=== PATIENT | male | born 1970 | race Native Hawaiian/Other Pacific Islander ===

== ENCOUNTER 2016-11-20 06:37 | Inpatient (IN) | payer OTHER ==
[~2016-11-20] VITALS: Ht 180.3 cm; Wt 98.0 kg
[2016-11-20] VITALS (25 sets, daily range): BP systolic 149–214; BP diastolic 90–121; PULSE 57–99; RESP 15–23; TEMP 98–98.8; O2SAT 96–100
[~2016-11-20 06:37] MED LIST: HYDR-3533 PO; JANU50TA9 PO; KETO10 PO; ZOFR4TAB3 SL
[2016-11-20] MEDS ORDERED: OMEP10CA PO (06:45)
[2016-11-20] MEDS ORDERED: JANU50TA8 PO (06:45)
[2016-11-20] MEDS ORDERED: ASPIRIN 325 MG TAB PO ONE (07:15)
[2016-11-20] MEDS ORDERED: SODIUM CHLORIDE 0.9% FLUSH 10 ML FLUSH IVF PRN (07:15)
--- NOTE | 2016-11-20 07:16 | PD ---
HPI Chief Complaint: Chest Pain Time Seen by Provider: 06:54 Travel History International Travel<30 days: No (unknown) Contact w/Intl Traveler<30days: No (unknown) History of Present Illness HPI 46yo M with PMH of GERD, HTN and NIDDM presents to the ED with c/o intermittent chest pain for 2 days. Pain is midsternal, burning and lasts few minutes at a time. Last episode of chest pain was last night. Denies any associated sob, nausea, diaphoresis, vomiting. Pain occasionally radiates in bilateral upper back. Denies fever, abdominal pain, focal weakness or numbness. Pt has not been compliant with his blood pressure medication for at least 1 month and has not seen his PMD in a while. He does not know his HTN medication. +Cig smoker. Denies any previous similar chest pain or stress test. Pt took his omeprazole. PFSH Past Medical History Cardiovascular Problems: Yes (HTN) Diabetes: Yes Patient Takes Glucophage: No Diminished Hearing: No Hypertension: Yes Kidney Stones: Yes Musculoskeletal: Yes (BACK PAIN) Tetanus Vaccination: Unknown Influenza Vaccination: No Social History Alcohol Use: Yes (rarely) Tobacco Use: Yes (OCC.) Substance Use: No Allergies-Medications (Allergen,Severity, Reaction): Coded Allergies: No Known Allergies (Verified , 11/20/16) Reported Meds & Prescriptions Reported Meds & Active Scripts Active Reported Omeprazole 10 Mg Cap 10 Mg PO DAILY Janumet (Sitagliptin-Metformin) 50-1,000 Mg Tab 1 Tab PO BID Review of Systems Except as stated in HPI: all other systems reviewed are Neg Physical Exam Narrative GENERAL: 46yo M not in acute distress. SKIN: Focused skin assessment warm/dry. HEAD: Atraumatic. Normocephalic. EYES: Pupils equal and round. No scleral icterus. No injection or drainage. ENT: No nasal bleeding or discharge. Mucous membranes pink and moist. NECK: Trachea midline. No JVD. CARDIOVASCULAR: Regular rate and rhythm. No murmur appreciated. RESPIRATORY: No accessory muscle use. Clear to auscultation. Breath sounds equal bilaterally. GASTROINTESTINAL: Abdomen soft, non-tender, nondistended. No rebound tenderness or guarding. MUSCULOSKELETAL: No obvious deformities. No clubbing. No cyanosis. No edema. NEUROLOGICAL: Awake and alert. No obvious cranial nerve deficits. Motor grossly within normal limits. Normal speech. PSYCHIATRIC: Appropriate mood and affect; insight and judgment normal. Data Data Last Documented VS Vital Signs Date Time Temp Pulse Resp B/P Pulse Ox O2 Delivery O2 Flow Rate FiO2 11/20/16 08:00 62 22 200/102 97 11/20/16 07:01 Room Air 11/20/16 06:45 98.3 Orders Basic Metabolic Panel (Bmp) (11/20/16 07:05) Ckmb (Isoenzyme) Profile (11/20/16 07:05) Complete Blood Count With Diff (11/20/16 07:05) Prothrombin Time / Inr (Pt) (11/20/16 07:05) Act Partial Throm Time (Ptt) (11/20/16 07:05) Troponin I (11/20/16 07:05) Chest, Single Ap (11/20/16 07:05) Ecg Monitoring (11/20/16 07:05) Bilateral Bp Monitoring (11/20/16 07:05) Iv Access Insert/Monitor (11/20/16 07:05) Oximetry (11/20/16 07:05) Aspirin (Aspirin) (11/20/16 07:15) Sodium Chloride 0.9% Flush (Ns Flush) (11/20/16 07:15) Electrocardiogram (11/20/16 06:46) CKMB (11/20/16 07:10) CKMB% (11/20/16 07:10) Metoprolol Tartrate Inj (Lopressor Inj) (11/20/16 08:15) Nitroglycerin Sl (Nitrostat Sl) (11/20/16 08:15) Consult Cardiology (11/20/16 ) Vector Control Assistant / Telemetry CRISTINO.Q8H (11/20/16 08:13) Heparin Inj (Heparin Inj) (11/20/16 08:15) Heparin Inj (Heparin Inj) (11/20/16 14:15) Heparin Inj (Heparin Inj) (11/20/16 14:15) Heparin-D5w Inj (Heparin-D5w Inj) (11/20/16 08:15) Act Partial Throm Time (Ptt) (11/20/16 08:13) Prothrombin Time / Inr (Pt) (11/20/16 08:13) Electrocardiogram (11/20/16 ) Admit Order (Ed Use Only) (11/20/16 08:33) Labs Laboratory Tests Test 11/20/16 07:10 White Blood Count 11.3 TH/MM3 Red Blood Count 5.29 MIL/MM3 Hemoglobin 15.1 GM/DL Hematocrit 44.2 % Mean Corpuscular Volume 83.5 FL Mean Corpuscular Hemoglobin 28.5 PG Mean Corpuscular Hemoglobin 34.2 % Concent Red Cell Distribution Width 13.8 % Platelet Count 251 TH/MM3 Mean Platelet Volume 9.5 FL Neutrophils (%) (Auto) 60.8 % Lymphocytes (%) (Auto) 27.5 % Monocytes (%) (Auto) 7.9 % Eosinophils (%) (Auto) 3.3 % Basophils (%) (Auto) 0.5 % Neutrophils # (Auto) 6.9 TH/MM3 Lymphocytes # (Auto) 3.1 TH/MM3 Monocytes # (Auto) 0.9 TH/MM3 Eosinophils # (Auto) 0.4 TH/MM3 Basophils # (Auto) 0.1 TH/MM3 CBC Comment DIFF FINAL Differential Comment Prothrombin Time 10.9 SEC Prothromb Time International 1.0 RATIO Ratio Activated Partial 28.9 SEC Thromboplast Time Sodium Level 135 MEQ/L Potassium Level 3.6 MEQ/L Chloride Level 100 MEQ/L Carbon Dioxide Level 27.0 MEQ/L Anion Gap 8 MEQ/L Blood Urea Nitrogen 13 MG/DL Creatinine 1.09 MG/DL Estimat Glomerular Filtration 73 ML/MIN Rate Random Glucose 174 MG/DL Calcium Level 8.9 MG/DL Total Creatine Kinase 378 U/L Creatine Kinase MB 7.7 NG/ML Creatine Kinase MB % 2.0 % Troponin I 1.35 NG/ML [facility] Medical Decision Making Medical Screen Exam Complete: Yes Emergency Medical Condition: Yes Interpretation(s) EKG: NSR 80bpm. ST segment elevation in V1-V3. However, ST elevation in V2-V3 is similar to 10/02/2009 EKG. TWI I, aVL, V6. LVH. Normal axis. Differential Diagnosis ACS vs. GERD vs. hypertensive emergency Narrative Course 46yo M with atypical presents chest pain. However, he does have LVH, ST elevation in anterior leads that are similar to his previous EKG in 2009. Pt currently does not have any chest pain and blood pressure is markedly elevated. Will check labs including cardiac enzymes. Labs reviewed, mild leukocytosis at 11.3. Troponin is elevated at 1.35. Cardiology Dr. Osorio called. CXR showed mild left LVH. Pt reevaluated at bedside and still denies any chest pain or sob currently. Discussed with Dr. Osorio who recommended to keep pt NPO, start heparin, give beta malinda and he will see him today. Repeat EKG showed persistent ST elevation V2, V3. TWI I, aVL, V6. Essentially unchanged from prior EKG. Pt still has no chest pain. Heparin bolus and drip ordered. Pt given lopressor 5mg IV. Discussed with Dr. Hernandez and accepted to his service for NSTEMI. Critical Care Narrative Aggregate critical care time was 50 minutes. Time to perform other separately billable procedures was not included in the critical care time. My time did not include minutes spent treating any other patients simultaneously or on activities that did not directly contribute to the patient's treatment. The services I provided to this patient were to treat and/or prevent clinically significant deterioration that could result in: cardiovascular collapse or . I provided critical care services requiring my management, as noted below: Chart data review, documentation time, medication orders and management, vital sign assessments/reviewing monitor data, ordering and reviewing lab tests, ordering and interpreting/reviewing x-rays and diagnostic studies, care of the patient and discussion of the patient with the admitting physicians. HemaPrompt Point of Care Internal Pos. & Neg. Controls: Passed Fecal Specimen Occult Blood: Negative Diagnosis Primary Impression: NSTEMI (non-ST elevated myocardial infarction) Admitting Information Admitting Physician Requests: Yoli Carrillo DO Nov 20, 2016 07:16 Admitting Information Admitting Physician Requests: Yoli Carrillo DO Nov 20, 2016 07:16
[2016-11-20 07:27] LABS: AUTOMATED NEUTROPHIL # 6.9 TH/MM3 (1.8-7.7); BASOPHIL # 0.1 TH/MM3 (0-0.2); BASOPHIL % 0.5 % (0.0-2.0); EOSINOPHIL # 0.4 TH/MM3 (0-0.4); EOSINOPHIL % 3.3 % (0.0-4.0); HEMATOCRIT 44.2 % (39.0-51.0); HEMO FLAGS DIFF FINAL; LYMPH % 27.5 % (9.0-44.0); LYMPHOCYTE # 3.1 TH/MM3 (1.0-4.8); MEAN CELL VOLUME 83.5 FL (80.0-100.0); MEAN CORPUSCULAR HEMOGLOBIN 28.5 PG (27.0-34.0); MEAN CORPUSCULAR HGB CONC 34.2 % (32.0-36.0); MONO % 7.9 % (0.0-8.0); NEUT % 60.8 % (16.0-70.0); PLATELET COUNT 251 TH/MM3 (150-450); RED BLOOD COUNT 5.29 MIL/MM3 (4.50-5.90); RED CELL DISTRIBUTION WIDTH 13.8 % (11.6-17.2); WHITE BLOOD COUNT 11.3 TH/MM3 (4.0-11.0)
[2016-11-20 07:35] LABS: APTT (PATIENT) 28.9 SEC (24.3-30.1); PROTHROMBIN TIME - PATIENT 10.9 SEC (9.8-11.6)
[2016-11-20 07:47] LABS: POTASSIUM 3.6 MEQ/L (3.5-5.1)
--- NOTE | 2016-11-20 07:48 | RADRPT ---
EXAM DATE/TIME: 11/20/2016 07:20 [place] COMPARISON: No previous studies available for comparison. INDICATIONS : Chest pain. MEDICAL HISTORY : Hypertension. SURGICAL HISTORY : None. ENCOUNTER: Initial ACUITY: 2 days PAIN SCORE: 4/10 LOCATION: center of chest FINDINGS: There is mild prominence to the cardiac silhouette. There is no congestive failure or infiltrate. T here is no pneumothorax. The portion of the bony skeleton visualized is unremarkable. CONCLUSION: Mild left ventricular hypertrophy. Damon Mcallister MD FACR on November 20, 2016 at 7:46 Board Certified Radiologist. This report was verified electronically.
[2016-11-20 08:11] LABS: CKMB 7.7 NG/ML (0.5-3.6)
[2016-11-20] MEDS ORDERED: METOPROLOL TARTRATE 5 MG/5 ML VIAL IV PUSH ONE (08:15)
[2016-11-20] MEDS ORDERED: HEPARIN-D5W INJ 250 ML IV SCH (08:15)
[2016-11-20] MEDS ORDERED: NITROGLYCERIN 0.4 MG SL 25 TABS/BTL SL PRN ×2 (08:15→08:45)
[2016-11-20] MEDS ORDERED: HEPARIN SODIUM - IV 10,000 UNITS/10 ML VIAL IV ONE (08:15)
[2016-11-20] MEDS ORDERED: ONDANSETRON HCL 4 MG/2 ML VIAL IV PRN (08:45)
[2016-11-20] MEDS ORDERED: MORPHINE SULFATE 4 MG/ML INJ IV PRN (08:45)
[2016-11-20] MEDS ORDERED: GLUCAGON 1 MG/ML VIAL OTHER PRN (08:45)
[2016-11-20] MEDS ORDERED: DEXTROSE 50% IN WATER 50 ML VIAL(D50) IV PUSH PRN (08:45)
[2016-11-20] MEDS ORDERED: ACETAMINOPHEN 325 MG TAB PO PRN ×2 (08:45→17:45)
[2016-11-20] MEDS ORDERED: LISINOPRIL 5 MG TAB PO SCH (09:00)
[2016-11-20] MEDS ORDERED: CARVEDILOL 3.125 MG TAB PO SCH (09:00)
--- NOTE | 2016-11-20 09:02 | HHI.HP ---
[facility] No Primary Care Physician Admission Diagnosis NSTEMI Diagnoses: Chief Complaint: Chest pain Travel History International Travel<30 Days: No (unknown) Contact w/Intl Traveler <30 Da: No (unknown) Traveled to Known Affected Are: No History of Present Illness 46-year-old male with a medical history significant for type 2 diabetes, hypertension, GERD, tobacco abuse presents to the hospital with complaint of chest pain episodes over the past 2 days. He described mid sternal chest pressure lasting 5-20 minutes. Pain is described as severe. He denies associated shortness of breath or diaphoresis. No nausea or vomiting. The patient admits to not being compliant with his medications. The last time he took lisinopril was about a month ago. He has been intermittently compliant with his diabetes medication. He continues to smoke one pack of cigarettes per day. Currently the patient is chest pain-free. No shortness of breath. Review of Systems Constitutional: DENIES: Fever, Chills Cardiovascular: COMPLAINS OF: Chest pain, DENIES: Palpitations Except as stated in HPI: all other systems reviewed are Neg Past Family Social History Past Medical History Hypertension Diabetes GERD Tobacco abuse Past Surgical History None Reported Medications Reported Meds & Active Scripts Active Reported Omeprazole 10 Mg Cap 10 Mg PO DAILY Janumet (Sitagliptin-Metformin) 50-1,000 Mg Tab 1 Tab PO BID Allergies: Coded Allergies: No Known Allergies (Verified , 11/20/16) Family History Both parents with hypertension. 2 siblings with diabetes. Social History Patient has been smoking 1 pack of cigarettes per day for the past 15 years. He admits to occasional alcohol. He denies illicit drugs. Physical Exam Vital Signs Vital Signs Date Time Temp Pulse Resp B/P Pulse Ox O2 Delivery O2 Flow Rate FiO2 11/20/16 08:00 62 22 200/102 97 11/20/16 07:01 79 18 189/111 98 Room Air 11/20/16 07:00 96 Room Air 11/20/16 07:00 78 15 189/111 96 Room Air 11/20/16 06:49 81 18 193/109 99 Room Air 11/20/16 06:45 98.3 80 18 214/121 100 Room Air Physical Exam GENERAL: This is a well-nourished, well-developed patient, in no apparent distress. SKIN: No rashes, ecchymoses or lesions. Cool and dry. HEAD: Atraumatic. Normocephalic. No temporal or scalp tenderness. EYES: Pupils equal round and reactive. Extraocular motions intact. No scleral icterus. No injection or drainage. ENT: Nose without bleeding, purulent drainage or septal hematoma. Throat without erythema, tonsillar hypertrophy or exudate. Uvula midline. Airway patent. NECK: Trachea midline. No JVD or lymphadenopathy. Supple, nontender, no meningeal signs. CARDIOVASCULAR: Regular rate and rhythm without murmurs, gallops, or rubs. RESPIRATORY: Clear to auscultation. Breath sounds equal bilaterally. No wheezes , rales, or rhonchi. GASTROINTESTINAL: Abdomen soft, non-tender, nondistended. No hepato-splenomegaly , or palpable masses. No guarding. MUSCULOSKELETAL: Extremities without clubbing, cyanosis, or edema. No joint tenderness, effusion, or edema noted. No calf tenderness. Negative Homans sign bilaterally. NEUROLOGICAL: Awake and alert. Cranial nerves II through XII intact. Motor and sensory grossly within normal limits. Five out of 5 muscle strength in all muscle groups. Normal speech. Laboratory Laboratory Tests Test 11/20/16 07:10 White Blood Count 11.3 Red Blood Count 5.29 Hemoglobin 15.1 Hematocrit 44.2 Mean Corpuscular Volume 83.5 Mean Corpuscular Hemoglobin 28.5 Mean Corpuscular Hemoglobin 34.2 Concent Red Cell Distribution Width 13.8 Platelet Count 251 Mean Platelet Volume 9.5 Neutrophils (%) (Auto) 60.8 Lymphocytes (%) (Auto) 27.5 Monocytes (%) (Auto) 7.9 Eosinophils (%) (Auto) 3.3 Basophils (%) (Auto) 0.5 Neutrophils # (Auto) 6.9 Lymphocytes # (Auto) 3.1 Monocytes # (Auto) 0.9 Eosinophils # (Auto) 0.4 Basophils # (Auto) 0.1 CBC Comment DIFF FINAL Differential Comment Prothrombin Time 10.9 Prothromb Time International 1.0 Ratio Activated Partial 28.9 Thromboplast Time Sodium Level 135 Potassium Level 3.6 Chloride Level 100 Carbon Dioxide Level 27.0 Anion Gap 8 Blood Urea Nitrogen 13 Creatinine 1.09 Estimat Glomerular Filtration 73 Rate Random Glucose 174 Calcium Level 8.9 Total Creatine Kinase 378 Creatine Kinase MB 7.7 Creatine Kinase MB % 2.0 Troponin I 1.35 Result Diagram: 11/20/1670911/20/16709 Imaging Last Impressions Chest X-Ray 11/20/16704 Signed Impressions: Service Date/Time: Sunday, November 20, 2016 07:20 - CONCLUSION: Mild left ventricular hypertrophy. Damon Mcallister MD FACR Assessment and Plan Problem List: (1) NSTEMI (non-ST elevated myocardial infarction) ICD Code: I21.4 Status: Acute (2) Hypertension ICD Code: I10 Status: Acute (3) Diabetes ICD Code: E11.9 Status: Acute (4) Tobacco abuse ICD Code: Z72.0 Status: Acute Assessment and Plan 46-year-old male with NSTEMI: Patient presented with chest pain, elevated troponin. Multiple risk factors including uncontrolled diabetes, uncontrolled hypertension, tobacco abuse. Chest x-ray film reviewed. Some cardiomegaly. EKG with LVH. There are some new ST depression in lead V1 and V6. Troponin 1.35 on presentation. - Cardiology consulted. Patient has been started on a heparin drip, NPO. He was given aspirin. Serial EKG and cardiac enzymes. - Morphine, nitro, oxygen, beta malinda. Uncontrolled hypertension: Secondary to noncompliance with medications. - Start lisinopril 10 mg daily. - Coreg started. Continue to monitor. Clonidine as needed Type 2 diabetes: - Sliding-scale insulin with Accu-Cheks. - Check hemoglobin A1c GERD: - Protonix GI prophylaxis: PPI. Stool softener PRN constipation. DVT PPx: Heparin Discussed Condition With Dr. Quinteros Physician Certification 2 Midnight Certification Type: Admission for Inpatient Services Order for Inpatient Services The services are ordered in accordance with Medicare regulations or non- Medicare payer requirements, as applicable. In the case of services not specified as inpatient-only, they are appropriately provided as inpatient services in accordance with the 2-midnight benchmark. Estimated LOS (days): 3 days is the estimated time the patient will need to remain in the hospital, assuming treatment plan goals are met and no additional complications. Post-Hospital Plan: Home Gladys Hernandez MD Nov 20, 2016 09:02
[2016-11-20] MEDS: INSULIN ASPART SUPPLEMENTAL SCALE SQ SCH ×3 (11:00→21:00)
[2016-11-20 11:54] LABS: APTT (PATIENT) 35.7 SEC (24.3-30.1); PROTHROMBIN TIME - PATIENT 10.8 SEC (9.8-11.6)
[2016-11-20] MEDS ORDERED: ENALAPRILAT 1.25 MG/ML VIAL IV PRN (13:45)
[2016-11-20] MEDS ORDERED: HEPARIN SODIUM - IV 10,000 UNITS/10 ML VIAL IV PRN ×2 (14:15)
[2016-11-20] MEDS ORDERED: HEPARIN-NS/PF INJ 500 ML ONE (15:59)
[2016-11-20] MEDS ORDERED: IOHEXOL 350 MG/ML 50 ML BTL (for Cath Lab) OTHER ONE (16:04)
[2016-11-20] MEDS ORDERED: IOHEXOL 350 MG/ML 100 ML BTL (for Cath Lab) OTHER ONE (16:04)
[2016-11-20] MEDS ORDERED: MIDAZOLAM HCL 5 MG/5 ML VIAL ONE (16:09)
[2016-11-20] MEDS ORDERED: HEPARIN SODIUM - IV 10,000 UNITS/10 ML VIAL ONE (16:46)
[2016-11-20] MEDS ORDERED: PRASUGREL 10 MG TAB ONE (17:14)
--- NOTE | 2016-11-20 17:37 | MB ---
cc: LAUREL CASTANEDA MD DATE OF CONSULTATION: 11/20/2016 REASON FOR CONSULTATION: HISTORY OF PRESENT ILLNESS: The patient is a 46 year-old male with a history of diabetes mellitus, hypertension, gastroesophageal reflux disease, and smoking. He has had a two day history of substernal chest discomfort which is severe, up to 20 minutes. He presented to the emergency room and was found to have elevated troponin consistent with non ST elevated myocardial infarction. PAST MEDICAL HISTORY: Hypertension. Diabetes mellitus. Gastroesophageal reflux disease No history of coronary artery disease or CVA. MEDICATIONS: 1. Omeprazole 2. Janumet ALLERGIES: NONE. SOCIAL HISTORY: The patient smokes one pack per day. He drinks alcohol occasionally. He is accompanied by his friend. FAMILY HISTORY: Negative for cardiac disease. REVIEW OF SYSTEMS: Otherwise negative. PHYSICAL EXAMINATION: VITAL SIGNS: Blood pressure 163/111, pulse 74 and regular. HEENT: Negative. 2+ carotid upstrokes. No bruits. LUNGS: Clear. HEART: Regular rate and rhythm. No murmur, gallop or rubs. ABDOMEN: Soft, no bruits. EXTREMITIES: No edema, 2+ pulses. NEUROLOGIC: Grossly nonfocal. EKG: Reviewed and showed normal sinus rhythm, left ventricular hypertrophy. T-wave inversions and anteroseptal ST elevation which are unchanged from the previous old EKGs. LABORATORY DATA: Hemoglobin 15.1, potassium 3.6, creatinine 1.35 and 4.74, CK 378, CKMB 7.7, potassium 3.6, creatinine 1.1. DIAGNOSIS: 1. Non ST elevated myocardial infarction. 2. Diabetes mellitus. 3. Smoking. The patient will be scheduled for cardiac catheterization and coronary intervention if necessary. He understands the risks and benefits and wishes to proceed. MD MICAH Renner/RAYMUNDO /3:41 PM /5:27 PM MTDTraci
[2016-11-20] MEDS ORDERED: TEMAZEPAM 15 MG CAP PO PRN (17:45)
[2016-11-20] MEDS ORDERED: MISC INFORMATION XX ONE (17:45)
[2016-11-20] MEDS ORDERED: SODIUM CHLOR 0.9% 1000 ML INJ 1,000 ML IV SCH (18:00)
[2016-11-20] MEDS ORDERED: CARVEDILOL 6.25 MG TAB PO ONE (18:30)
[2016-11-20] MEDS: LISINOPRIL 5 MG TAB PO SCH (18:44)
[2016-11-20] MEDS ORDERED: ATORVASTATIN 40 MG TAB PO SCH (21:00)
--- NOTE | 2016-11-20 22:03 | EKG ---
Date Performed: 11/20/2016 Time Performed: 08:24:01 PTAGE: 46 years EKG: Sinus rhythm LEFT VENTRICULAR HYPERTROPHY AND ST-T CHANGE ABNORMAL ECG PREVIOUS TRACING : 11/20/2016 06.46 Compared to prior tracing no significant change DOCTOR: Davian Bowen Interpretating Date/Time 11/20/2016 22:02:15
--- NOTE | 2016-11-20 22:15 | EKG ---
Date Performed: 11/20/2016 Time Performed: 06:46:05 PTAGE: 46 years EKG: Sinus rhythm ST ELEVATION, PROBABLY EARLY REPOLARIZATION NONSPECIFIC ST & T-WAVE ABNORMALITY BORDERLINE ECG INTER PRETATION BASED ON A DEFAULT AGE OF 40 YEARS PREVIOUS TRACING : 10/02/2009 16.00 Compared to the previous tracing, lateral ST/T wave c hanges are new DOCTOR: Davian Bowen Interpretating Date/Time 11/20/2016 22:14:42
[2016-11-21] VITALS (18 sets, daily range): BP systolic 133–155; BP diastolic 72–93; PULSE 55–104; RESP 18–19; TEMP 97.9–99; O2SAT 98–99
[2016-11-21 03:34] LABS: AUTOMATED NEUTROPHIL # 6.4 TH/MM3 (1.8-7.7); BASOPHIL % 0.4 % (0.0-2.0); EOSINOPHIL # 0.3 TH/MM3 (0-0.4); EOSINOPHIL % 2.6 % (0.0-4.0); HEMATOCRIT 41.8 % (39.0-51.0); HEMO FLAGS DIFF FINAL; LYMPHOCYTE # 2.8 TH/MM3 (1.0-4.8); MEAN CELL VOLUME 84.9 FL (80.0-100.0); MEAN CORPUSCULAR HEMOGLOBIN 28.7 PG (27.0-34.0); MEAN CORPUSCULAR HGB CONC 33.8 % (32.0-36.0); PLATELET COUNT 220 TH/MM3 (150-450); RED BLOOD COUNT 4.93 MIL/MM3 (4.50-5.90); RED CELL DISTRIBUTION WIDTH 13.7 % (11.6-17.2); WHITE BLOOD COUNT 10.4 TH/MM3 (4.0-11.0)
[2016-11-21 03:38] LABS: ANION GAP 8 MEQ/L (5-15); BICARBONATE 27.4 MEQ/L (21.0-32.0); BLOOD UREA NITROGEN 11 MG/DL (7-18); CHLORIDE 104 MEQ/L (98-107); GLOMERULAR FILTRATION RATE 97 ML/MIN (>89); POTASSIUM 3.8 MEQ/L (3.5-5.1); SODIUM (NA) 139 MEQ/L (136-145)
[2016-11-21 03:40] LABS: CREATINE KINASE 301 U/L (39-308); HDL CHOLESTEROL 28.9 MG/DL (40.0-60.0); LDL CHOLESTEROL 173 MG/DL (0-99)
[2016-11-21 03:57] LABS: CKMB 5.7 NG/ML (0.5-3.6)
[2016-11-21] MEDS: INSULIN ASPART SUPPLEMENTAL SCALE SQ SCH ×2 (06:04→12:43)
[2016-11-21] MEDS ORDERED: CARVEDILOL 6.25 MG TAB PO SCH (09:00)
[2016-11-21] MEDS ORDERED: ASPIRIN 81 MG CHEW TAB PO SCH (09:00)
[2016-11-21] MEDS ORDERED: PRASUGREL 10 MG TAB PO SCH (09:00)
[2016-11-21] MEDS ORDERED: LISINOPRIL 10 MG TAB PO SCH (09:00)
[2016-11-21] MEDS: LISINOPRIL 5 MG TAB PO SCH (09:18)
[2016-11-21] MEDS ORDERED: CARV6.25 PO (11:43)
[2016-11-21] MEDS ORDERED: OMEP10CA PO (11:43)
[2016-11-21] MEDS ORDERED: PRAS10TA PO (11:43)
[2016-11-21] MEDS ORDERED: JANU50TA8 PO (11:43)
[2016-11-21] MEDS ORDERED: ATOR40TA16 PO (11:43)
[2016-11-21] MEDS ORDERED: LISI-519 PO (11:43)
[2016-11-21] MEDS ORDERED: Aspirin Chew PO (11:43)
--- NOTE | 2016-11-21 11:44 | HHI.DCPOC ---
Discharge Care Plan Diagnosis: (1) NSTEMI (non-ST elevated myocardial infarction) (2) Hypertension (3) Diabetes (4) Tobacco abuse Goals to Promote Your Health * To prevent worsening of your condition and complications * To maintain your health at the optimal level Directions to Meet Your Goals Take your medications as prescribed Follow your dietary instruction Follow activity as directed Keep your appointments as scheduled Take your immunizations and boosters as scheduled If your symptoms worsen call your PCP, if no PCP go to Urgent Care Center or Emergency Room Smoking is Dangerous to Your Health. Avoid second hand smoke Call the 24-hour hour crisis hotline for domestic abuse at Gladys Hernandez MD Nov 21, 2016 11:44
--- NOTE | 2016-11-21 11:45 | HHI.DS ---
Discharge Summary Admission Date Nov 20, 2016 at 08:34 Discharge Date: Nov 21, 2016 Admitting Diagnosis NSTEMI (1) NSTEMI (non-ST elevated myocardial infarction) ICD Code: I21.4 (2) Hypertension ICD Code: I10 (3) Diabetes ICD Code: E11.9 (4) Tobacco abuse ICD Code: Z72.0 Procedures Heart catheterization Brief History - From Admission 46-year-old male with a medical history significant for type 2 diabetes, hypertension, GERD, tobacco abuse presents to the hospital with complaint of chest pain episodes over the past 2 days. He described mid sternal chest pressure lasting 5-20 minutes. Pain is described as severe. He denies associated shortness of breath or diaphoresis. No nausea or vomiting. The patient admits to not being compliant with his medications. The last time he took lisinopril was about a month ago. He has been intermittently compliant with his diabetes medication. He continues to smoke one pack of cigarettes per day. Currently the patient is chest pain-free. No shortness of breath. CBC/BMP: 11/21/16 0256 11/21/16 0256 Significant Findings Laboratory Tests Test 11/20/16 11/20/16 11/20/16 11/21/16 07:10 11:29 20:01 02:56 White Blood Count 11.3 TH/MM3 (4.0-11.0) Sodium Level 135 MEQ/L (136-145) Estimat Glomerular Filtration 73 ML/MIN (>89) Rate Random Glucose 174 MG/DL 112 MG/DL (74-106) (74-106) Total Creatine Kinase 378 U/L (39-308) Creatine Kinase MB 7.7 NG/ML 5.7 NG/ML (0.5-3.6) (0.5-3.6) Troponin I 1.35 NG/ML 4.74 NG/ML 3.89 NG/ML 3.10 NG/ML (0.02-0.05) (0.02-0.05) (0.02-0.05) (0.02-0.05) Activated Partial 35.7 SEC Thromboplast Time (24.3-30.1) Calcium Level 8.4 MG/DL (8.5-10.1) Triglycerides Level 229 MG/DL (42-150) Cholesterol Level 248 MG/DL (120-200) LDL Cholesterol 173 MG/DL (0-99) HDL Cholesterol 28.9 MG/DL (40.0-60.0) Imaging Last Impressions Chest X-Ray 11/20/16 0705 Signed Impressions: Service Date/Time: Sunday, November 20, 2016 07:20 - CONCLUSION: Mild left ventricular hypertrophy. Damon Mcallister MD FACR PE at Discharge GENERAL: This is a well-nourished, well-developed patient, in no apparent distress. CARDIOVASCULAR: Normal rate and regular rhythm without murmurs, gallops, or rubs. RESPIRATORY: Good respiratory efforts. Breath sounds equal and clear to auscultation bilaterally. GASTROINTESTINAL: Abdomen soft, non-tender, non-distended. Normal active bowel sounds MUSCULOSKELETAL: Extremities without cyanosis, or edema. NEURO: Alert & Oriented x4 to person, place, time, situation. Moves all ext x4 PSYCH: Appropriate mood and affect. Pt update on day of discharge Patient reports he is feeling well. No chest pain or shortness of breath. He understand the need to take his medications. He reports that he will no longer use tobacco. Hospital Course 46-year-old male admitted with NSTEMI and uncontrolled hypertension. Evaluation and treatment course detailed below NSTEMI: Patient presented with chest pain, elevated troponin. Multiple risk factors including uncontrolled diabetes, uncontrolled hypertension, tobacco abuse. Chest x-ray film reviewed. Some cardiomegaly. EKG with LVH. There are some new ST depression in lead V1 and V6. Troponin 1.35 on presentation. -Cardiology was consulted. Patient underwent PCI. He is discharged on Effient , Coreg, lisinopril, aspirin, and a statin. Uncontrolled hypertension: Secondary to noncompliance with medications. BP better controlled after the patient was started on lisinopril and Coreg. He is advised to follow up outpatient. Type 2 diabetes: - Sliding-scale insulin with Accu-Cheks while inpatient. Patient to resume Janumet on discharge. -Hemoglobin A1c pending GERD: - Protonix Noncompliance: The patient was extensively counseled on the need to stay on the medications as prescribed. We discussed discharge planning at length. All of his questions were answered. He was given prescriptions for all of his medications. Case discussed with Dr. Osorio. Pt Condition on Discharge: Stable Discharge Disposition: Discharge Home Discharge Time: > 30 minutes Discharge Instructions Follow up Referrals: Cardiology - 2 Weeks with Fran Osorio MD PCP Follow-up - 1 Week New Medications: Atorvastatin (Atorvastatin) 40 Mg Tab 80 MG PO HS #30 TAB Carvedilol (Coreg) 6.25 Mg Tab 6.25 MG PO BID #60 TAB Lisinopril (Lisinopril) 5 Mg Tab 5 MG PO DAILY #30 TAB Prasugrel (Effient) 10 Mg Tab 10 MG PO DAILY #30 TAB ([Aspirin Chew]) 81 MG CHEW 81 MG PO DAILY #30 TAB.CHEW Continued Medications: Omeprazole (Omeprazole) 10 Mg Cap 10 MG PO DAILY #30 Ref 0 CAP (This prescription has been renewed) Sitagliptin-Metformin (Janumet) 50-1,000 Mg Tab 1 TAB PO BID Blood Sugar Management #60 Ref 0 TAB (This prescription has been renewed) Gladys Hernandez MD Nov 21, 2016 11:45
--- NOTE | 2016-11-21 12:28 | EKG ---
Date Performed: 11/21/2016 Time Performed: 05:36:44 PTAGE: 46 years EKG: CONSIDER ACUTE ST ELEVATION NE Sinus bradycardia Anteroseptal ST elevation, CONSIDE R ACUTE INFARCT Lateral ST-T changes may be due to myocardial ischemia Abnormal ECG Compared to prior tracing no significant change PREVIOUS TRACING 11/20/2016 19.50.54 DOCTOR: Manuel Garza Interpretating Date/Time 11/21/2016 12:27:22
--- NOTE | 2016-11-21 12:28 | EKG ---
Date Performed: 11/20/2016 Time Performed: 19:50:54 PTAGE: 46 years EKG: Sinus rhythm Possible left ventricular hypertrophy Lateral ST-T changes may be due to hypertrophy and/or ischemia Abnormal ECG Compared to prior tracing no significant change PREVIOUS TRACING : 11/20/2016 08.24 DOCTOR: Manuel Garza Interpretating Date/Time 11/21/2016 12:27:32
--- NOTE | 2016-11-21 13:33 | PD.CARD.PN ---
Subjective Subjective Remarks No CP or SOB, feels fine Objective Medications Current Medications Medications (Trade) Dose Ordered Sig/Dasha Route Start Time Stop Time Status Last Admin (NS Flush) 2 ml UNSCH PRN IVF 11/20/16 07:15 (Nitrostat Sl) 0.4 mg Q5M PRN SL 11/20/16 08:15 (Morphine Inj) 2 mg Q30M PRN IV 11/20/16 08:45 (Tylenol) 650 mg Q6H PRN PO 11/20/16 08:45 (Zofran Inj) 4 mg Q6H PRN IV 11/20/16 08:45 (D50w (Vial) Inj) 25 ml UNSCH PRN IV PUSH 11/20/16 08:45 (Glucagon Inj) 1 mg UNSCH PRN OTHER 11/20/16 08:45 (Vasotec Inj) 1.25 mg Q6H PRN IV 11/20/16 13:45 11/20/16 13:52 (Tylenol) 325 mg Q4H PRN PO 11/20/16 17:45 (Restoril) 15 mg HS PRN PO 11/20/16 17:45 (Aspirin Chew) 81 mg DAILY PO 11/21/16 09:00 11/21/16 09:18 (Effient) 10 mg DAILY PO 11/21/16 09:00 11/21/16 09:18 (Prinivil) 5 mg DAILY PO 11/20/16 18:30 11/21/16 09:18 (Lipitor) 80 mg HS PO 11/20/16 21:00 11/20/16 21:07 (Coreg) 6.25 mg BID PO 11/21/16 09:00 11/21/16 09:19 Vital Signs / I&O Vital Signs Date Time Temp Pulse Resp B/P Pulse Ox O2 Delivery O2 Flow Rate FiO2 11/21/16 13:20 65 11/21/16 12:47 62 11/21/16 12:34 99.0 74 19 146/83 99 11/21/16 12:00 62 11/21/16 11:00 69 11/21/16 10:29 84 11/21/16 09:41 76 11/21/16 08:22 98 11/21/16 08:05 67 11/21/16 07:15 98.5 77 19 155/93 98 11/21/16 07:00 65 11/21/16 06:00 58 11/21/16 05:16 63 11/21/16 04:03 60 11/21/16 03:41 98.0 66 18 133/85 99 11/21/16 03:41 55 11/21/16 02:22 55 11/21/16 01:25 56 11/21/16 00:14 64 11/20/16 23:45 62 11/20/16 23:45 98.0 66 18 150/97 99 11/20/16 22:00 58 11/20/16 21:32 57 11/20/16 20:39 99 11/20/16 20:00 64 11/20/16 19:45 98.0 99 18 153/93 99 11/20/16 19:00 78 11/20/16 18:00 84 11/20/16 17:00 74 11/20/16 16:00 70 11/20/16 15:30 98.8 70 17 164/102 96 11/20/16 15:00 69 11/20/16 14:00 72 11/20/16 13:50 163/101 I/O 11/20/16 11/20/16 11/20/16 11/21/16 11/21/16 11/21/16 07:00 15:00 23:00 07:00 15:00 23:00 Intake Total 990 ml 240 ml Output Total 850 ml Balance 990 ml -610 ml Intake Oral 240 ml 240 ml IV Total 750 ml Output Urine Total 850 ml # Voids 2 # Bowel Movements 0 Physical Exam GENERAL: In NAD SKIN: Warm and dry. HEAD: Normocephalic. EYES: No scleral icterus. No injection or drainage. NECK: Supple, trachea midline. No JVD or lymphadenopathy. CARDIOVASCULAR: Regular rate and rhythm without murmurs, gallops, or rubs. RESPIRATORY: Breath sounds equal bilaterally. No accessory muscle use. GASTROINTESTINAL: Abdomen soft, non-tender, nondistended. MUSCULOSKELETAL: No cyanosis, or edema. Groin stable Laboratory Laboratory Tests Test 11/20/16 11/21/16 20:01 02:56 Troponin I 3.89 NG/ML 3.10 NG/ML Thyroid Stimulating Hormone 0.995 uIU/ML 3rd Gen White Blood Count 10.4 TH/MM3 Red Blood Count 4.93 MIL/MM3 Hemoglobin 14.1 GM/DL Hematocrit 41.8 % Mean Corpuscular Volume 84.9 FL Mean Corpuscular Hemoglobin 28.7 PG Mean Corpuscular Hemoglobin 33.8 % Concent Red Cell Distribution Width 13.7 % Platelet Count 220 TH/MM3 Mean Platelet Volume 9.3 FL Neutrophils (%) (Auto) 62.0 % Lymphocytes (%) (Auto) 27.0 % Monocytes (%) (Auto) 8.0 % Eosinophils (%) (Auto) 2.6 % Basophils (%) (Auto) 0.4 % Neutrophils # (Auto) 6.4 TH/MM3 Lymphocytes # (Auto) 2.8 TH/MM3 Monocytes # (Auto) 0.8 TH/MM3 Eosinophils # (Auto) 0.3 TH/MM3 Basophils # (Auto) 0.0 TH/MM3 CBC Comment DIFF FINAL Differential Comment Sodium Level 139 MEQ/L Potassium Level 3.8 MEQ/L Chloride Level 104 MEQ/L Carbon Dioxide Level 27.4 MEQ/L Anion Gap 8 MEQ/L Blood Urea Nitrogen 11 MG/DL Creatinine 0.86 MG/DL Estimat Glomerular Filtration 97 ML/MIN Rate Random Glucose 112 MG/DL Calcium Level 8.4 MG/DL Total Creatine Kinase 301 U/L Creatine Kinase MB 5.7 NG/ML Triglycerides Level 229 MG/DL Cholesterol Level 248 MG/DL LDL Cholesterol 173 MG/DL HDL Cholesterol 28.9 MG/DL Cholesterol/HDL Ratio 8.58 RATIO Imaging Last Impressions Chest X-Ray 11/20/16 0705 Signed Impressions: Service Date/Time: Sunday, November 20, 2016 07:20 - CONCLUSION: Mild left ventricular hypertrophy. Damon Mcallister MD FACR Assessment and Plan Problem List: (1) NSTEMI (non-ST elevated myocardial infarction) (2) CAD (coronary artery disease) (3) Hypertension (4) Tobacco abuse (5) Diabetes Assessment and Plan Stable post PCI. Continue Effient for 1 year, ASA, statin, beta malinda, lisinopril. DC home. Referred to cardiac rehab. Fran Osorio MD Nov 21, 2016 13:33
[2016-11-21 15:59] LABS: HEMOGLOBIN A1a 1.1 %; HEMOGLOBIN A1b 2.2 %; HEMOGLOBIN LA1C 2.5 %
--- NOTE | 2016-11-22 13:00 | MA ---
cc: LAUREL CASTANEDA DATE 11/20/2016 DATE 11/20/2016 INDICATIONS Non-ST elevation myocardial infarction, class IV angina, diabetes mellitus. This procedure is URGENT PROCEDURE PERFORMED 1. Retrograde left heart catheterization with left ventriculography and selective coronary angiography. 2. Angioplasty and stenting of the left circumflex artery. 3. Moderate sedation. ACCESS SITE Right femoral artery EQUIPMENT USED 5 Nepali pigtail catheter, JL4 and AR modified coronary artery catheters. XB 3.5 guide, Marker wire 2.0 mm for predilatation, 2.75 x 18 mm Resolute stent at 10 atmospheres, 2.75 x 8 mm noncompliant balloon at 25 atmospheres for post-dilatation. MEDICATIONS Versed IV, Fentanyl IV, heparin IV, nitroglycerin IC, Effient 60 mg p.o. IV CONTRAST Omnipaque 150 cc COMPLICATIONS None BLOOD LOSS Less than 20 cc METHOD OF HEMOSTASIS Angio-Seal closure RESULTS HEMODYNAMICS Heart rate 80 beats per minute Left ventricular end-diastolic pressure 80 mmHg Left ventricle 125/80 Aorta 125/76/97 LEFT VENTRICULOGRAPHY Ejection fraction 45% with distal anterolateral hypokinesis. No mitral regurgitation. CORONARY ANGIOGRAPHY Left main coronary artery patent. Left anterior descending artery has 50% stenosis in the mid portion and 60% stenosis in the distal portion. D-1 patent, D-2 patent. Left circumflex artery has severe 80% stenosis in the proximal portion. OM-1 is patent. OM-2 is patent. Right coronary artery is a dominant vessel which is patent. PDA has 70% stenosis in the distal portion. It is a small caliber vessel and has 90% stenosis in a small distal branch which fills late. The posterior left ventricular branch of the right coronary artery had 60% stenosis. The right coronary was a dominant vessel. Stenosis in the proximal circumflex artery was 12 mm long. Pre-REGINA flow 3, post-REGINA flow 3, post-stenosis 0. POST INTERVENTION ANGIOGRAPHY Revealed excellent patency of the stented segment and no evidence of dissection, thrombosis or distal embolization. DIAGNOSIS 1. Non-ST elevation myocardial infarction. 2. Coronary artery disease with severe stenosis of the proximal left circumflex artery. 3. Mild left ventricular dysfunction consistent with ischemic cardiomyopathy. 4. Successful angioplasty and stenting of the proximal left circumflex artery. DISPOSITION Mr. Martinez will be monitored on Telemetry with serial enzymes and EKG's. He will continue aggressive modification of his cardiac risk factors. We will continue therapy with Effient for at least one year and aspirin indefinitely. He was strongly encouraged to quit smoking. MD MICAH Renner/BHARATHI /5:28 PM /12:49 PM PALLAVI
== END 2016-11-21 14:50 | disposition home or self-care (01) | DRG 247 ==
LOC: NEPE 06:37 → NEDA 08:34 → HCIN 13:08
PROVIDERS: ADMIT Family Medicine; ATTEND Family Medicine
PROC: 4A023N7 Measurement of Cardiac Sampling and Pressure, Left Heart, Percutaneous Approach (ICD-10-PCS; 2016-11-20)
PROC: B2111ZZ Fluoroscopy of Multiple Coronary Arteries using Low Osmolar Contrast (ICD-10-PCS; 2016-11-20)
PROC: B2151ZZ Fluoroscopy of Left Heart using Low Osmolar Contrast (ICD-10-PCS; 2016-11-20)
PROC: 027034Z Dilation of Coronary Artery, One Artery with Drug-eluting Intraluminal Device, Percutaneous Approach (ICD-10-PCS; principal; 2016-11-20 15:00)
DX: I21.4 Non-ST elevation (NSTEMI) myocardial infarction (principal); E11.65 Type 2 diabetes mellitus with hyperglycemia; I10 Essential (primary) hypertension; K21.9 Gastro-esophageal reflux disease without esophagitis; Z87.442 Personal history of urinary calculi; Z91.14 Patient's other noncompliance with medication regimen; M54.9 Dorsalgia, unspecified; F17.210 Nicotine dependence, cigarettes, uncomplicated; Z83.3 Family history of diabetes mellitus; Z82.49 Family history of ischemic heart disease and other diseases of the circulatory system; I25.10 Atherosclerotic heart disease of native coronary artery without angina pectoris
CPT/HCPCS: 71010; 80048; 80061; 82550; 82552; 82948; 83036; 84443; 84484; 85025; 85610; 85730; 92928; 93005; 93458; 96374; C1725; C1769; C1874; C1887; C1893; J1644; J1815; J2250; J3010; J7030; Q9967

== ENCOUNTER 2017-02-23 15:09 | Emergency (ER) | payer OTHER ==
[~2017-02-23] VITALS: Ht 180.3 cm; Wt 97.0 kg
[~2017-02-23 15:09] MED LIST changes: +ATOR40TA16 PO; +Aspirin Chew PO; +CARV6.25 PO; -HYDR-3533 PO; +JANU50TA8 PO; -JANU50TA9 PO; -KETO10 PO; +LISI-519 PO; +OMEP10CA PO; +PRAS10TA PO; -ZOFR4TAB3 SL
[2017-02-23 15:12] VITALS: TEMP 98
[2017-02-23 15:19] VITALS: BP 134/77; PULSE 85; RESP 16; TEMP 98.2; O2SAT 99
[2017-02-23 15:23] VITALS: BP_SYST 185; BP_SYST 187; BP_DIAS 100; BP_DIAS 107; PULSE 85; RESP 18; O2SAT 99
[2017-02-23] MEDS ORDERED: ATROPINE/SCOPOLAM/HYOSCYAM/PB ELIXIR 10 ML CUP PO ONE (15:30)
[2017-02-23] MEDS ORDERED: ALUMINUM/MAGNESIUM/SIMETH 30 ML CUP PO ONE (15:30)
[2017-02-23] MEDS ORDERED: LIDOCAINE VISCOUS 2% SOLN 15 ML UDC PO ONE (15:30)
--- NOTE | 2017-02-23 15:36 | PD ---
HPI Chief Complaint: GI Complaint Time Seen by Provider: 15:32 Travel History International Travel<30 days: Yes Contact w/Intl Traveler<30days: Yes Name of Country Traveled to: [facility] 02/17/17 Traveled to known affect area: Yes History of Present Illness HPI 36-year-old male presents to the emergency department for evaluation of epigastric tenderness that he states is "gas". Patient states this started yesterday. He states he has had these symptoms intermittently for many years. He states it always occurs after he changes food. He recently came back from [place]. He states that when he went to [place], he had the same symptoms but it went away on its own. He denies any fevers or chills. No chest pain or shortness breath. He denies any nausea, vomiting, diarrhea, constipation. No blood in the stool. Patient states is exactly the symptoms he has had in the past. He denies any other complaints at this time. PFSH Past Medical History Arthritis: Yes Heart Rhythm Problems: No Cancer: No Cardiovascular Problems: Yes High Cholesterol: Yes Chest Pain: No Congestive Heart Failure: No Diabetes: Yes Patient Takes Glucophage: Yes Diminished Hearing: No Endocrine: Yes Gastrointestinal Disorders: No Genitourinary: No Hypertension: Yes Implanted Vascular Access Dvce: No Kidney Stones: Yes Musculoskeletal: Yes Neurologic: No Psychiatric: No Reproductive: No Respiratory: No Past Surgical History Other Surgery: No Social History Alcohol Use: Yes (rarely) Tobacco Use: Yes (OCC.) Substance Use: No Allergies-Medications (Allergen,Severity, Reaction): Coded Allergies: No Known Allergies (Verified , 11/20/16) Reported Meds & Prescriptions Reported Meds & Active Scripts Active Effient (Prasugrel) 10 Mg Tab 10 Mg PO DAILY Lisinopril 5 Mg Tab 5 Mg PO DAILY Coreg (Carvedilol) 6.25 Mg Tab 6.25 Mg PO BID Atorvastatin (Atorvastatin Calcium) 40 Mg Tab 80 Mg PO HS [Aspirin Chew] 81 MG Chew 81 Mg PO DAILY Omeprazole 10 Mg Cap 10 Mg PO DAILY Janumet (Sitagliptin-Metformin) 50-1,000 Mg Tab 1 Tab PO BID Review of Systems Except as stated in HPI: all other systems reviewed are Neg Physical Exam Narrative GENERAL: Well-nourished, well-developed male patient, ambulatory. Afebrile. SKIN: Focused skin assessment warm/dry. HEAD: Normocephalic. Atraumatic. EYES: No scleral icterus. No injection or drainage. NECK: Supple, trachea midline. No JVD or lymphadenopathy. CARDIOVASCULAR: Regular rate and rhythm without murmurs, gallops, or rubs. RESPIRATORY: Breath sounds equal bilaterally. No accessory muscle use. Lungs sounds are clear to auscultation. GASTROINTESTINAL: Abdomen soft, non-tender, nondistended. No abdominal pain to palpation. MUSCULOSKELETAL: No cyanosis, or edema. BACK: Nontender without obvious deformity. No CVA tenderness. Data Data Last Documented VS Vital Signs Date Time Temp Pulse Resp B/P Pulse Ox O2 Delivery O2 Flow Rate FiO2 02/23/17 15:24 18 02/23/17 15:23 85 185/100 99 Room Air 187/107 02/23/17 15:19 98.2 Orders Al-Mag Hy-Si 40-40-4 Mg/Ml Liq (Mag-Al P (02/23/17 15:30) Lidocaine 2% Viscous (Xylocaine 2% Visco (02/23/17 15:30) Nodos-Nwqmmm-Adzruv-Pb Liq ( Liq (02/23/17 15:30) Pantoprazole (Protonix) (02/23/17 16:30) MDM Medical Decision Making Medical Screen Exam Complete: Yes Emergency Medical Condition: Yes Medical Record Reviewed: Yes Differential Diagnosis Gastritis versus GERD versus pancreatitis Narrative Course 46-year-old male presents to the emergency department for evaluation of epigastric bloating that he states is consistent with previous symptoms in the past. He has no abdominal tenderness to palpation and appears well on exam. Patient states he is usually given "a pill" which takes the symptoms away. He is asking for this pill, does not know what it is. Patient is given GI cocktail. Patient declines any lab work or further workup. He is given Protonix 40 mg PO and will be discharged with a prescription for Protonix. He is to return for any acute, worsening of symptoms. Diagnosis Primary Impression: GERD (gastroesophageal reflux disease) Qualified Code: K21.9 - Gastroesophageal reflux disease, esophagitis presence not specified Referrals: Primary Care Physician call for appointment Patient Instructions: Gastroesophageal Reflux Disease (ED), General Instructions Additional Instructions: Take Protonix daily. Follow-up with your primary care physician. Return to the emergency department for any acute worsening of symptoms. Med/Other Pt SpecificInfo: Prescription(s) given Scripts Pantoprazole (Protonix)40 Mg Tab40 Mg PO DAILY #30 TAB Ref 0 Prov:Mary Kay Hernandez 02/23/17 Disposition: 01 DISCHARGE HOME Condition: Stable Mary Kay Hernandez Feb 23, 2017 15:36
[2017-02-23] MEDS ORDERED: PROT40TA PO (16:21)
[2017-02-23] MEDS ORDERED: PANTOPRAZOLE SOD 40 MG DELAYED RELEASE TAB PO ONE (16:30)
== END 2017-02-23 19:17 | disposition home or self-care (01) ==
LOC: NEPD 15:09
DX: K21.9 Gastro-esophageal reflux disease without esophagitis (principal); M19.90 Unspecified osteoarthritis, unspecified site; E78.00 Pure hypercholesterolemia, unspecified; E11.9 Type 2 diabetes mellitus without complications; I10 Essential (primary) hypertension; Z87.442 Personal history of urinary calculi; Z72.0 Tobacco use; Z79.899 Other long term (current) drug therapy
CPT/HCPCS: 99283